=== PATIENT | female | born 1935 | race Caucasian/White ===

== ENCOUNTER → 2016-12-09 | Outpatient (REF) | payer OTHER ==
[2016-12-15 14:17] LABS: ACETAMINOPHEN Negative ug/mL (10-30); AMITRIPTYLINE None Detected (Not Estab.); BUTALBITAL None Detected ug/mL (1-10); DESIPRAMINE None Detected (Not Estab.); DIAZEPAM None Detected ug/mL (0.1-0.9); DOXEPIN None Detected (Not Estab.); ETHANOL Negative % (0.000-0.010); NORCHLORDIAZEPOXIDE None Detected ug/mL (0.1-0.6); NORDIAZEPAM None Detected ug/mL (0.1-1.4); NORDOXEPIN None Detected (Not Estab.); NORTRIPTYLINE None Detected ng/mL (50-150); PENTOBARBITAL None Detected ug/mL (1-5); PHENOBARBITAL None Detected ug/mL (15-40); PHENYTOIN None Detected ug/mL (10.0-20.0)
== END ==
LOC: M LABDRAW1 15:51
PROVIDERS: ATTEND Physical Medicine & Rehabilitation
DX: M48.07 Spinal stenosis, lumbosacral region (principal)
CPT/HCPCS: 84600; G0480

== ENCOUNTER → 2016-12-28 | Outpatient (CLI) | payer MEDICARE, BC, OTHER ==
[2016-12-28 10:33] LABS: MEAN CORPUSCULAR HGB CONC 32.5 g/dl (32.0-36.5); MEAN CORPUSCULAR VOLUME 98.2 fl (80.0-96.0); RED CELL DISTRIBUTION WIDTH 12.7 % (11.5-14.5); WHITE BLOOD COUNT 8.4 K/mm3 (4.0-10.0)
[2016-12-28 11:07] LABS: VITAMIN B12 LEVEL > 2000 PG/ML (247-911)
[2016-12-28 11:13] LABS: ALBUMIN/GLOBULIN RATIO 0.94 (1.00-1.93); ALKALINE PHOSPHATASE 105 U/L (45-117); ALT/SGPT 26 U/L (12-78); ANION GAP 7 MEQ/L (8-16); AST/SGOT 24 U/L (15-37); BILIRUBIN,TOTAL 0.4 MG/DL (0.2-1.0); BLOOD UREA NITROGEN 26 MG/DL (7-18); CALCIUM LEVEL 8.1 MG/DL (8.8-10.2); CARBON DIOXIDE LEVEL 26 MEQ/L (21-32); CHLORIDE LEVEL 110 MEQ/L (98-107); CHOLESTEROL LEVEL 125 MG/DL (<200); CREATININE FOR GFR 1.24 MG/DL (0.55-1.02); GLOMERULAR FILTRATION RATE 44.1 (>32); GLUCOSE, FASTING 81 MG/DL (83-110); PERCENT SATURATION 5.7 % (13.2-45.0); POTASSIUM SERUM 4.4 MEQ/L (3.5-5.1); SODIUM LEVEL 143 MEQ/L (136-145); TOTAL IRON BINDING CAPACITY 350 UG/DL (250-450); TOTAL PROTEIN 6.2 GM/DL (6.4-8.2); TRIGLYCERIDES LEVEL 121 MG/DL (<150)
--- NOTE | 2016-12-28 11:15 | REP ---
TWO VIEW CHEST: Two views of the chest are performed and compared with a prior study of 12/24/2013 . Small bilateral pleural effusions are present with mild bibasilar atelectasis/infiltrate. There is very mild cardiomegaly. There is calcification and tortuosity of the thoracic aorta. IMPRESSION: Small pleural effusions bilaterally with mild bibasilar atelectasis/infiltrate. Mild cardiomegaly. Signed by Duong Aviles MD 12/28/2016 01:47 P
--- NOTE | 2016-12-28 22:20 | ECGEPIP ---
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
== END ==
LOC: M LAB 10:00
PROVIDERS: ATTEND Family Medicine
DX: I10 Essential (primary) hypertension (principal); D64.9 Anemia, unspecified; R53.83 Other fatigue

== ENCOUNTER 2017-03-05 14:11 | Inpatient (IN) | payer MEDICARE, BC, OTHER ==
[~2017-03-05] VITALS: Ht 152.4 cm; Wt 42.1 kg
[2017-03-05] MEDS ORDERED: TRAM50TA2 PO (14:35)
[2017-03-05] MEDS ORDERED: ALEV220C2 PO (14:35)
[2017-03-05] MEDS ORDERED: TYLE650T35 PO (14:35)
[2017-03-05] MEDS ORDERED: ROPI1TAB PO (14:35)
[2017-03-05] MEDS ORDERED: CIPR500T3 PO (14:35)
[2017-03-05] MEDS ORDERED: ALPH0.156 OU (14:35)
[2017-03-05] MEDS ORDERED: latanaprost OU (14:35)
[2017-03-05] MEDS ORDERED: COLA100C5 PO (14:35)
[2017-03-05] MEDS: METOPROLOL 5 MG/5 ML VIAL IV SCH ×35 (15:35→18:20)
[2017-03-05 15:36] LABS: BASO # 0.1 10^3/uL (0.0-0.2); BASO % 1.2 % (0.0-1.0); EOS # 0.1 10^3/uL (0.0-0.50); EOS % 1.4 % (0.0-3.0); IMMATURE GRANULOCYTE % 0.2 % (0-0); LYMPH # 1.2 10^3/uL (1.5-4.5); LYMPH % 13.5 % (24.0-44.0); MEAN CORPUSCULAR HEMOGLOBIN 30.3 pg (27.0-33.0); MEAN CORPUSCULAR HGB CONC 31.8 g/dl (32.0-36.5); MEAN CORPUSCULAR VOLUME 95.4 fl (80.0-96.0); MONO # 1.1 10^3/uL (0.0-0.8); MONO % 12.2 % (0.0-5.0); NEUTROPHILS # 6.6 10^3/uL (1.8-7.7); NEUTROPHILS % 71.5 % (36.0-66.0); PLATELET COUNT, AUTOMATED 418 10^3/uL (150-450); WHITE BLOOD COUNT 9.2 10^3/uL (4.0-10.0)
[2017-03-05 15:49] LABS: INR 1.25
[2017-03-05 15:50] LABS: ALBUMIN 3.1 GM/DL (3.2-5.2); ALBUMIN/GLOBULIN RATIO 0.76 (1.00-1.93); ALKALINE PHOSPHATASE 135 U/L (45-117); ALT/SGPT 44 U/L (12-78); ANION GAP 10 MEQ/L (8-16); AST/SGOT 38 U/L (7-37); BILIRUBIN,DIRECT 0.1 MG/DL (0.0-0.2); BILIRUBIN,TOTAL 0.5 MG/DL (0.2-1.0); BLOOD UREA NITROGEN 24 MG/DL (7-18); CALCIUM LEVEL 8.7 MG/DL (8.8-10.2); CARBON DIOXIDE LEVEL 22 MEQ/L (21-32); CHLORIDE LEVEL 106 MEQ/L (98-107); CREATININE FOR GFR 1.18 MG/DL (0.55-1.02); GLOMERULAR FILTRATION RATE 46.7 (>32); GLUCOSE, FASTING 92 MG/DL (83-110); POTASSIUM SERUM 4.1 MEQ/L (3.5-5.1); SODIUM LEVEL 138 MEQ/L (136-145); TOTAL PROTEIN 7.2 GM/DL (6.4-8.2)
[2017-03-05] MEDS ORDERED: NEBIVOLOL 5 MG TAB (BYSTOLIC) PO STA (16:02)
[2017-03-05] MEDS ORDERED: FUROSEMIDE 40 MG/4 ML VIAL (J1940) IV ONE (16:15)
--- NOTE | 2017-03-05 16:44 | REP ---
Clinical: The left lower extremity pain and swelling . Technique: Aviles scale and color Doppler evaluation using linear high frequency transducer. Findings: Ultrasound examination of the left lower extremity deep venous structures from the common femoral vein to the popliteal vein demonstrates normal compressibility flow and wave patterns in response to respiration and augmentation. There is no evidence for deep venous thrombosis. Impression: No evidence for deep venous thrombosis. Signed by Fan Hightower MD 03/05/2017 04:35 P
--- NOTE | 2017-03-05 16:49 | REP ---
Clinical: Chest pain. Comparison: 03/05/2017. Findings: Lower lobe consolidations and moderate pleural effusions are similar to prior examination. Differential diagnosis includes CHF/pulmonary edema and multifocal pneumonia. No pneumothorax. Cardiomegaly cannot be excluded. Skeletal structures intact. Impression: Bilateral consolidations and pleural effusions similar to prior examination. Differential diagnosis includes CHF and multifocal pneumonia. Signed by Fan Hightower MD 03/05/2017 04:41 P
[2017-03-05] MEDS ORDERED: LATA5OPD OU (17:04)
[2017-03-05] MEDS ORDERED: SLOW142T PO (17:04)
[2017-03-05] MEDS ORDERED: LEVO112T2 PO (17:04)
[2017-03-05] MEDS ORDERED: ASPI325T PO (17:04)
[2017-03-05] MEDS ORDERED: MYRB50TA PO (17:04)
[2017-03-05] MEDS ORDERED: ASPI1TAB PO (17:04)
[2017-03-05] MEDS ORDERED: ENOXAPARIN 100MG/1ML SYRINGE (J1650) SC SCH (17:45)
[2017-03-05] MEDS ORDERED: ACETAMINOPHEN 650MG ER TAB (TYLENOL ARTHRITIS) PO PRN (17:45)
[2017-03-05] MEDS ORDERED: ASPIRIN 81 MG ENTERIC TAB PO PRN (17:45)
[2017-03-05] MEDS ORDERED: DIGOXIN INJ 0.5 MG/2 ML AMP (J1160) IV STA (18:30)
[2017-03-05 20:00] VITALS: BP 127/85
[2017-03-05] MEDS: DOCUSATE SODIUM 100 MG CAP PO SCH (20:23)
[2017-03-05] MEDS: METOPROLOL TART 25 MG TABLET PO SCH (20:23)
[2017-03-05] MEDS: LEVOTHYROXINE 112MCG TABLET (0.112MG) PO SCH (20:24)
[2017-03-05] MEDS: APIXABAN 2.5 MG TAB (ELIQUIS) PO SCH (20:24)
--- NOTE | 2017-03-05 20:44 | HPEPDOC ---
General Date of Admission Mar 05, 2017 at 17:58 Primary Care Physician: Farhan Hdz Attending Physician: LAYNE NOLAND MD Chief Complaint The patient is a 81-year-old female admitted with a reason for visit of Atrial Fibrillation,Chf. Source: Patient, Family, RN notes reviewed, Old records Exam Limitations: No limitations Associated Symptoms: Cough, Shortness of breath, Weakness History of Present Illness Ms. Rajput is an 81-year-old female who presents to [facility]'s Emergency Department with increasing shortness of breath and newly diagnosed atrial fibrillation. She is accompanied by her [id number]. Past medical history significant for: hypertension, newly diagnosed atrial fibrillation, hyperthyroidism, diastolic congestive heart failure, pernicious anemia, restless leg syndrome, chronic pain, glaucoma, constipation, history of tubular adenoma, chronic gastritis, history of H. pylori, rectocele/cystocele, left hammertoe, lumbar scoliosis. Patient stated that she was in good health until three weeks ago when she first developed a sinus infection that she characterized with a runny nose, sneezing, and yellow nasal secretions and phlegm. She treated this symptomatically with Mucinex, Karen [place], and "salt washings" of her nasal passages that she said helped some. However, she did not improve. The shortness of breath she was experiencing worsened with exertion and she developed a dry cough. This began last Tuesday. She also noticed swelling of her left ankles and foot the Tuesday before and eventually presented to her primary care provider on Tuesday. An x-ray and ultrasound was obtained. She was also started on Ciprofloxacin ( which she has been taking for three days) and eventually Amoxicillin (which she has been taking for two days). The patient did not get the results of that imaging, but assumed that because she had not heard anything that the imaging results were negative. She presented to the Urgent Care where the patient was told that she was in atrial fibrillation. This is a new diagnosis for her. She denies a history of chest pain or palpitations. Admits to weakness due to the shortness of breath. Her shortness of breath was also no better, so patient was advised to present to [facility] ED. She elected to drive herself. Emergency Department evaluation included vital signs, labs, and an EKG which showed tachycardia, BNP 57838, and atrial fibrillation with rapid ventricular response. Patient denies fever, night sweats, chills, headache, chest pain, palpitations, dizziness, lightheadedness, weight changes, acute vision changes, acute hearing changes, nausea, vomiting, abdominal pain, dysuria, urinary frequency/urgency, hematuria, constipation, diarrhea, melena, hematochezia, epistaxis, hematemesis , hemoptysis, neck pain, joint pain, rashes, lesions, easy bruising. Patient admits to chronic tingling in her lateral aspect of her right lower leg , dry mouth, right shoulder pain, chronic blurry vision. Hospitalist service was consulted and patient was admitted for further medical management. Home Medications Scheduled (Aleve) 220 Mg Cap, 2 TAB PO DAILY, (Reported) (Slow Fe) 142 Mg Tab, 142 MG PO QPM, (Reported) Brimonidine Tartrate 0.15% (Alphagan P) 0.15 % Jacquelin, 1 DROP OU BID, (Reported) Ciprofloxacin HCl (Ciprofloxacin HCl) 500 Mg Tab, 1 TAB PO BID, (Reported) filled 03/01 for 7 days Docusate Sodium (Colace) 100 Mg Cap, 300 MG PO BID, (Reported) Latanoprost (Latanoprost) 50 Drop/2.5 Ml Soln, 1 DROP OU QHS, (Reported) Levothyroxine Sodium (Synthroid) 112 Mcg Tab, 112 MCG PO QHS, (Reported) Mirabegron Base (Myrbetriq) 50 Mg Tab, 50 MG PO QPM, (Reported) Ropinirole Hydrochloride (Ropinirole HCl) 1 Mg Tab, 2 MG PO QHS, (Reported) Scheduled PRN Acetaminophen (Tylenol 8 Hour Arthritis) 650 Mg Tab, 650 MG PO Q8H PRN for pain, (Reported) Aspirin (Aspirin 81) 81 Mg Tab, 81 MG PO DAILY PRN for PAIN, (Reported) Aspirin (Aspirin) 325 Mg Tab, 325 MG PO DAILY PRN for PAIN, (Reported) Tramadol HCl (Tramadol HCl) 50 Mg Tab, 1 TAB PO Q6HP PRN for pain, (Reported) Allergies Coded Allergies: Bee Venom (Verified Allergy, Unknown, 01/02/14) Celecoxib (Verified Allergy, Unknown, 01/02/14) Codeine (Verified Allergy, Unknown, 01/02/14) NSAIDs (Verified Allergy, Unknown, 01/02/14) Propoxyphene (Verified Allergy, Unknown, 01/02/14) Sulfa Antibiotics (Verified Allergy, Unknown, 01/02/14) Past Medical History Medical History 1. Hypertension 2. Newly diagnosed atrial fibrillation 3. Hyperthyroidism 4. Diastolic congestive heart failure 5. Pernicious anemia 6. Restless leg syndrome 7. Chronic pain, glaucoma 8. Constipation 9. History of tubular adenoma 10 Chronic gastritis 11. History of H. pylori 12. Rectocele/cystocele 13. Left hammertoe 14. Lumbar scoliosis Surgical History 1. Colonoscopy x2 2. EGD x2 3. Left bunionectomy and hammertoe deformity repair of second toe 4. Right knee arthroplasty 5. Bilateral cataract 6. Right drainage placement in eye for glaucoma Family History Father: , heart Mother: , brain cancer Sister: , 87, pneumonia Sister: , 66, lung cancer Brother: , 82, lung cancer Brother: , 86, lung cancer Sister: , 66, cancer Brother: , 40s, pneumonia Social History Lives with son. Has two adult sons and one daughter. Has seven grandchildren and three great-grandchildren. . from melanoma and colon cancer at the age of 81 three years ago. for 61 years. 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 Denies tobacco, EtOH, or illicit drug use. Denies travel. Review of Symptoms Constitutional: Reports: Weakness, Denies: Chills, Fever, Malaise, Night Sweats, Fatigue, Weight Loss Eyes: Reports: Vision change (Chronic blurry vision), Denies: Pain, Conjunctivae inflammation, Eyelid inflammation, Redness ENT: Denies: Head Aches, Ear Pain, Dysphagia, Sinus Congestion, Post Nasal Drip , Sore Throat, Epistaxis Skin: Denies: Rash, Lesions, Jaundice, Bruising, Itching, Dry Pulmonary: Reports: Dyspnea (With exertion), Cough (Dry), Denies: Pleuritic Chest Pain Cardiovascular: Reports: Edema (Left lower extremity), Denies: Chest Pain, Palpitations, Orthopnea, Paroxysmal Noc. Dyspnea, Lt Headedness Gastrointestinal: Denies: Nausea, Vomiting, Abdominal Pain, Diarrhea, Constipation, Melena, Hematochezia Genitourinary: Denies: Dysuria, Frequency, Incontinence, Hematuria, Retention Hematologic: Denies: Bruising, Bleeding Excessively, Petecchia, Purpura, Enlarged Lymph Nodes Endocrine: Denies: Polydipsia, Polyphagia, Polyuria Musculoskeletal: Reports: Back Pain, Shoulder Pain (Right), Denies: Neck Pain, Joint Pain Neurological: Reports: Weakness, Denies: Numbness Physical Examination General Exam: Positive: Alert, Cooperative, No Acute Distress Eye Exam: Positive: PERRLA, Conjunctiva & lids normal, EOMI, Negative: Sclera icteric, Ptosis ENT Exam: Positive: Atraumatic, Mucous membr. moist/pink, Pharynx Normal, Tongue Midline, Nares Patent, Negative: Pharyngeal Edema Neck Exam: Positive: Supple, JVD (~ 5cm), +2 carotid pulse wo bruit, Negative: thyromegaly, Lymphadenopathy Chest Exam: Positive: Clear to auscultation, Normal air movement Heart Exam: Positive: Irregular Rhythm, Negative: Gallops, Murmurs, Rubs Telemetry: Positive: Atrial fibrillation Abdomen Exam: Positive: BS Hypoactive, Soft, Negative: Tenderness, Hepatospenomegaly, Mass, Hernia Extremity Exam: Positive: Edema (+1-2 pitting edema up to the level of the tibial tuberosity bilaterally), Swelling, Negative: Clubbing, Cyanosis, Normal pulses, Tenderness Skin Exam: Negative: Rash, Lesion Neuro Exam: Positive: Normal Speech, Cranial Nerves 3-12 NL Other physical findings Portable chest x-ray IMPRESSION: Bilateral consolidations and pleural effusions similar to prior examination. Differential diagnosis includes CHF and multifocal pneumonia. Left lower extremity duplex ultrasound IMPRESSION: No evidence for deep venous thrombosis. Vital Signs Vital Signs Date Time Temp Pulse Resp B/P (MAP) Pulse Ox O2 Delivery O2 Flow Rate FiO2 03/05/17 18:26 120 98 03/05/17 17:13 136/96 (109) 03/05/17 14:55 Room Air 03/05/17 14:54 20 03/05/17 14:12 96.9 Height (in): 60 Weight (kg): 46.9 BMI (kg): 20.2 Laboratory Data Labs 24H Laboratory Tests 2 03/05/17 14:44: Immature Granulocyte % (Auto) 0.2H, White Blood Count 9.2, Red Blood Count 4.12 , Hemoglobin 12.5, Hematocrit 39.3, Mean Corpuscular Volume 95.4, Mean Corpuscular Hemoglobin 30.3, Mean Corpuscular Hemoglobin Concent 31.8L, Red Cell Distribution Width 14.0, Platelet Count 418, Neutrophils (%) (Auto) 71.5H, Lymphocytes (%) (Auto) 13.5L, Monocytes (%) (Auto) 12.2H, Eosinophils (%) (Auto ) 1.4, Basophils (%) (Auto) 1.2H, Neutrophils # (Auto) 6.6, Lymphocytes # (Auto ) 1.2L, Monocytes # (Auto) 1.1H, Eosinophils # (Auto) 0.1, Basophils # (Auto) 0.1, Immature Granulocyte # (Auto) 0.0, Nucleated Red Blood Cells % (auto) 0.0, Prothrombin Time 15.9H, Prothromb Time International Ratio 1.25, Anion Gap 10, Glomerular Filtration Rate 46.7, Calcium Level 8.7L, Aspartate Amino Transf (AST /SGOT) 38H, Alanine Aminotransferase (ALT/SGPT) 44, Alkaline Phosphatase 135H, Total Bilirubin 0.5, Direct Bilirubin 0.1, Total Creatine Kinase 41, Creatine Kinase MB 2.5, Creatine Kinase MB Relative Index 6.09H, Troponin I < 0.02, NT- Pro-B-Type Natriuretic Peptide 14344N, Total Protein 7.2, Albumin 3.1L, Albumin/ Globulin Ratio 0.76L, Lipase 152, Thyroid Stimulating Hormone (TSH) 3.410 CBC/BMP Laboratory Tests 03/05/17 14:44 Red Blood Count 4.12, Mean Corpuscular Volume 95.4, Mean Corpuscular Hemoglobin 30.3, Mean Corpuscular Hemoglobin Concent 31.8 L, Red Cell Distribution Width 14.0, Neutrophils (%) (Auto) 71.5 H, Lymphocytes (%) (Auto) 13.5 L, Monocytes (% ) (Auto) 12.2 H, Eosinophils (%) (Auto) 1.4, Basophils (%) (Auto) 1.2 H, Neutrophils # (Auto) 6.6, Lymphocytes # (Auto) 1.2 L, Monocytes # (Auto) 1.1 H, Eosinophils # (Auto) 0.1, Basophils # (Auto) 0.1 Plan / VTE VTE Prophylaxis Ordered?: Yes (Eliquis 2.5mg PO BID) Plan Plan Newly diagnosed atrial fibrillation - Admit to PCU - Consult cardiology - Metoprolol 25mg PO BID - Digoxin 0.25mg IV ONCE - Eliquis 2.5mg PO BID - EKG showing atrial fibrillation with RVR - CHADS2-VASc score: 5 - Cycle cardiac markers Exacerbation of congestive heart failure - BNP 36930 - Lasix 40mg IV BID - Echocardiogram, STAT (prior echocardiogram in 2006 revealed diastolic CHF) - No need for oxygen therapy orders at this time as patient is saturating appropriately - Afebrile and no leukocytosis, so no antibiotics required at this time Hyperthyroidism - Continue with current home medication Glaucoma - Continue with eye drops Restless leg syndrome - Continue with Requip - Constipation - Continue with current home medication Chronic pain - Continue with current home medication Disposition Admit: PCU Anticipated hospitalization: 2 nights Attending: Dr. Headley CODE STATUS: DNR/DNI Diet: Continue Current (No added salt) Activity: Continue Current Therapy: PT Diagnostics: Check Labs, Repeat Labs in AM, TTE GME ATTESTATION GME ATTESTATION My faculty preceptor for this patient encounter was physically present during the encounter and was fully available. All aspects of the patient interview, examination, medical decision making process, and medical care plan development were reviewed and approved by the faculty preceptor. The faculty preceptor is aware and concurs with the plan as stated in the body of this note and will attest to such by his/her cosignature. ATTENDING NOTE I have both independently examined this patient as well as reviewed the H&P. I have discussed in detail with the resident the findings and plan of treatment as documented in the residents note. I will continue to follow the patient and offer further guidance to the patients care as necessary during this hospital stay. JEYSON Woodson MD, DO Mar 05, 2017 19:10 LAYNE NOLAND MD Mar 07, 2017 11:41
[2017-03-05] MEDS ORDERED: ENOXAPARIN 60 MG/0.6 ML SYR (J1650) SC SCH (21:00)
[2017-03-05] MEDS ORDERED: DIGOXIN INJ 0.5 MG/2 ML AMP (J1160) IV ONE (21:30)
[2017-03-05] MEDS: BRIMONIDINE 0.15% OPHTH SOLN 5 ML OU SCH (21:42)
[2017-03-05 21:45] VITALS: BP 132/82
[2017-03-05] MEDS: LATANOPROST 0.005% OPHTH SOLN 2.5 ML OU SCH (21:47)
[2017-03-05] MEDS: rOPINIRole 1MG TAB PO SCH (21:47)
[2017-03-05 23:59] VITALS: BP 116/71
[2017-03-06 04:00] VITALS: BP 131/72
[2017-03-06] MEDS ORDERED: ONDANSETRON 4MG/2ML VIAL (J2405) IV PRN (04:00)
[2017-03-06] MEDS: traMADol 50 MG TAB PO PRN (04:17)
[2017-03-06 05:39] LABS: BASO # 0.1 10^3/uL (0.0-0.2); BASO % 1.2 % (0.0-1.0); EOS # 0.3 10^3/uL (0.0-0.50); EOS % 3.9 % (0.0-3.0); IMMATURE GRANULOCYTE % 0.4 % (0-0); LYMPH # 1.4 10^3/uL (1.5-4.5); MEAN CORPUSCULAR HEMOGLOBIN 30.3 pg (27.0-33.0); MEAN CORPUSCULAR HGB CONC 32.2 g/dl (32.0-36.5); MEAN CORPUSCULAR VOLUME 94.1 fl (80.0-96.0); MONO # 1.1 10^3/uL (0.0-0.8); MONO % 12.8 % (0.0-5.0); NEUTROPHILS # 5.4 10^3/uL (1.8-7.7); NEUTROPHILS % 64.7 % (36.0-66.0); PLATELET COUNT, AUTOMATED 339 10^3/uL (150-450); RED CELL DISTRIBUTION WIDTH 13.8 % (11.5-14.5); WHITE BLOOD COUNT 8.4 10^3/uL (4.0-10.0)
[2017-03-06 05:56] LABS: CALCIUM LEVEL 8.5 MG/DL (8.8-10.2); CREATININE FOR GFR 1.27 MG/DL (0.55-1.02); GLOMERULAR FILTRATION RATE 42.9 (>32); POTASSIUM SERUM 3.8 MEQ/L (3.5-5.1)
[2017-03-06 08:00] VITALS: BP 135/68
[2017-03-06] MEDS: DOCUSATE SODIUM 100 MG CAP PO SCH ×2 (08:32→21:54)
[2017-03-06] MEDS: FUROSEMIDE 40 MG/4 ML VIAL (J1940) IV SCH ×2 (08:32→16:35)
[2017-03-06] MEDS: METOPROLOL TART 25 MG TABLET PO SCH ×2 (08:32→21:55)
[2017-03-06] MEDS: APIXABAN 2.5 MG TAB (ELIQUIS) PO SCH ×2 (08:32→21:55)
[2017-03-06] MEDS: BRIMONIDINE 0.15% OPHTH SOLN 5 ML OU SCH ×2 (08:33→21:56)
[2017-03-06] MEDS: ONDANSETRON 4MG/2ML VIAL (J2405) IV PRN ×2 (10:02→16:00)
[2017-03-06 12:00] VITALS: BP 129/78
--- NOTE | 2017-03-06 12:23 | IPNPDOC ---
Subjective Date Seen The patient was seen on 03/06/17. Subjective Chief Complaint/HPI The patient is a 81-year-old female admitted with a reason for visit of Atrial Fibrillation,Chf. Events since last encounter complains of severe nausea this morning and back pain. Says SOB has improved left leg swelling has also improved. No fever or chills, no chest pain or cough , no abdominal pain or diarrhea. Patient says did have some sinus congestion about 2 weeks ago for which she took over the counter meds and nasal drops. This got better however she started having sob which progressively worsened over the past and made her come to the ED Objective Physical Examination General Exam: Positive: Alert, Cooperative, No Acute Distress Eye Exam: Positive: PERRLA, Conjunctiva & lids normal, EOMI, Negative: Sclera icteric, Ptosis ENT Exam: Positive: Atraumatic, Mucous membr. moist/pink, Pharynx Normal, Tongue Midline, Nares Patent, Negative: Pharyngeal Edema Neck Exam: Positive: Supple, JVD (~ 5cm), +2 carotid pulse wo bruit, Negative: thyromegaly, Lymphadenopathy Chest Exam: Positive: Clear to auscultation, Normal air movement Heart Exam: Positive: Tachycardic, Irregular Rhythm, Negative: Gallops, Murmurs, Rubs Telemetry: Positive: Atrial fibrillation Abdomen Exam: Positive: BS Hypoactive, Soft, Negative: Tenderness, Hepatospenomegaly, Mass, Hernia Extremity Exam: Positive: Edema (+1-2 pitting edema up to the level of the tibial tuberosity bilaterally), Swelling, Negative: Clubbing, Cyanosis, Normal pulses, Tenderness Skin Exam: Negative: Rash, Lesion Neuro Exam: Positive: Normal Speech, Cranial Nerves 3-12 NL Assessment /Plan Problems (1) Atrial fibrillation Status: Acute Problem Text: rate still not controlled ranging from 110 to 130. She got 2 doses of digoxin yesterday metoprolol and nebivolol currently on metoprolol 25 bid. started on eliquis. echo pending cardiology to see. (2) CHF (congestive heart failure) Status: Acute Response to Treatment: Improving Problem Text: continue with lasix (3) CKD (chronic kidney disease), stage III Status: Chronic (4) Hypothyroid Status: Chronic (5) Anemia Status: Chronic Problem Text: has iron deficiency anemia. (6) Restless leg syndrome Status: Chronic (7) Glaucoma Status: Chronic (8) Overactive bladder Status: Chronic Plan/VTE VTE Prophylaxis Ordered?: Yes (Eliquis 2.5mg PO BID) Plan Diet: Continue Current (No added salt) Activity: Continue Current Therapy: PT Diagnostics: Check Labs, Repeat Labs in AM, TTE VS, I&O, 24H, Fishbone Vital Signs/I&O Vital Signs Date Time Temp Pulse Resp B/P (MAP) Pulse Ox O2 Delivery O2 Flow Rate FiO2 03/06/17 08:32 85 135/68 03/06/17 08:00 97.6 18 92 Room Air I&O- Last 24 Hours up to 6 AM 03/07/17 06:00 Intake Total 0 ml Output Total 100 ml Balance -100 ml Laboratory Data 24H LABS Laboratory Tests 2 03/05/17 14:44: Immature Granulocyte % (Auto) 0.2H, White Blood Count 9.2, Red Blood Count 4.12 , Hemoglobin 12.5, Hematocrit 39.3, Mean Corpuscular Volume 95.4, Mean Corpuscular Hemoglobin 30.3, Mean Corpuscular Hemoglobin Concent 31.8L, Red Cell Distribution Width 14.0, Platelet Count 418, Neutrophils (%) (Auto) 71.5H, Lymphocytes (%) (Auto) 13.5L, Monocytes (%) (Auto) 12.2H, Eosinophils (%) (Auto ) 1.4, Basophils (%) (Auto) 1.2H, Neutrophils # (Auto) 6.6, Lymphocytes # (Auto ) 1.2L, Monocytes # (Auto) 1.1H, Eosinophils # (Auto) 0.1, Basophils # (Auto) 0.1, Immature Granulocyte # (Auto) 0.0, Nucleated Red Blood Cells % (auto) 0.0, Prothrombin Time 15.9H, Prothromb Time International Ratio 1.25, Anion Gap 10, Glomerular Filtration Rate 46.7, Calcium Level 8.7L, Aspartate Amino Transf (AST /SGOT) 38H, Alanine Aminotransferase (ALT/SGPT) 44, Alkaline Phosphatase 135H, Total Bilirubin 0.5, Direct Bilirubin 0.1, Total Creatine Kinase 41, Creatine Kinase MB 2.5, Creatine Kinase MB Relative Index 6.09H, Troponin I < 0.02, NT- Pro-B-Type Natriuretic Peptide 24758O, Total Protein 7.2, Albumin 3.1L, Albumin/ Globulin Ratio 0.76L, Lipase 152, Thyroid Stimulating Hormone (TSH) 3.410 03/05/17 20:43: Total Creatine Kinase 45, Creatine Kinase MB 2.1, Creatine Kinase MB Relative Index 4.66H, Troponin I < 0.02 03/06/17 05:13: Immature Granulocyte % (Auto) 0.4H, White Blood Count 8.4, Red Blood Count 3.70L , Hemoglobin 11.2L, Hematocrit 34.8L, Mean Corpuscular Volume 94.1, Mean Corpuscular Hemoglobin 30.3, Mean Corpuscular Hemoglobin Concent 32.2, Red Cell Distribution Width 13.8, Platelet Count 339, Neutrophils (%) (Auto) 64.7, Lymphocytes (%) (Auto) 17.0L, Monocytes (%) (Auto) 12.8H, Eosinophils (%) (Auto ) 3.9H, Basophils (%) (Auto) 1.2H, Neutrophils # (Auto) 5.4, Lymphocytes # (Auto ) 1.4L, Monocytes # (Auto) 1.1H, Eosinophils # (Auto) 0.3, Basophils # (Auto) 0.1, Immature Granulocyte # (Auto) 0.0, Nucleated Red Blood Cells % (auto) 0.0, Anion Gap 9, Glomerular Filtration Rate 42.9, Calcium Level 8.5L, Blood Urea Nitrogen 27H, Creatinine 1.27H, Sodium Level 141, Potassium Level 3.8, Chloride Level 108H, Carbon Dioxide Level 24, Magnesium Level 2.0 CBC/BMP Laboratory Tests 03/05/17 14:44 Red Blood Count 4.12, Mean Corpuscular Volume 95.4, Mean Corpuscular Hemoglobin 30.3, Mean Corpuscular Hemoglobin Concent 31.8 L, Red Cell Distribution Width 14.0, Neutrophils (%) (Auto) 71.5 H, Lymphocytes (%) (Auto) 13.5 L, Monocytes (% ) (Auto) 12.2 H, Eosinophils (%) (Auto) 1.4, Basophils (%) (Auto) 1.2 H, Neutrophils # (Auto) 6.6, Lymphocytes # (Auto) 1.2 L, Monocytes # (Auto) 1.1 H, Eosinophils # (Auto) 0.1, Basophils # (Auto) 0.1 03/06/17 05:13 Red Blood Count 3.70 L, Mean Corpuscular Volume 94.1, Mean Corpuscular Hemoglobin 30.3, Mean Corpuscular Hemoglobin Concent 32.2, Red Cell Distribution Width 13.8, Neutrophils (%) (Auto) 64.7, Lymphocytes (%) (Auto) 17.0 L, Monocytes (%) (Auto) 12.8 H, Eosinophils (%) (Auto) 3.9 H, Basophils (% ) (Auto) 1.2 H, Neutrophils # (Auto) 5.4, Lymphocytes # (Auto) 1.4 L, Monocytes # (Auto) 1.1 H, Eosinophils # (Auto) 0.3, Basophils # (Auto) 0.1, Calcium Level 8.5 L ESTHER MOCTEZUMA MD Mar 06, 2017 12:23
--- NOTE | 2017-03-06 15:00 | ECHO ---
DATE OF STUDY: 03/05/2017 REFERRING PHYSICIAN: Sharita Forrester DO HEIGHT: 60 inches. WEIGHT: 103 pounds. 2D MEASUREMENTS: Aortic root 3.0 cm. Proximal ascending aorta 3.1 cm. Left atrium 3.9 cm. Left atrial volume index 61. Ventricular septum 1.08 cm. Posterior wall 0.98 cm. Left ventricle diastole 3.7 cm. Left ventricle systole 2.6 cm. Inferior vena cava 2.1 cm with marked reduction of respiratory variation. DOPPLER MEASUREMENTS: Mild aortic regurgitation. No aortic stenosis. Aortic valve velocity 179 cm/s. LVOT velocity 80.5 cm/s. LVOT VTI 14.5 cm. Moderate mitral regurgitation. Mitral E velocity (continuous wave) 189 cm/s. Mitral pressure halftime 72 ms. Mitral E velocity (pulse wave) 451 cm/s. Moderate tricuspid regurgitation. Estimated right ventricle systolic pressure at least 75 mmHg assuming a right atrial pressure of at least 20 mmHg based on dilated inferior vena cava with marked reduction of respiratory variations. Mild pulmonic regurgitation. MITRAL ANNULAR TISSUE DOPPLER: E prime lateral 8.3 cm/s. E prime septal 8.9 cm/s. DESCRIPTION: Rhythm was atrial fibrillation with controlled ventricular response. No pericardial effusion. Image quality was fair. This was a 2D, M-mode, color flow Doppler and pulse wave Doppler examination and included mitral annular tissue Doppler. CONCLUSIONS: 1. Normal left ventricle internal dimensions and wall thickness. Normal regional LV wall motion and wall thickening. Normal LV systolic function. Left ventricular function 60% by visual estimate. 2. Severe left atrial dilatation (left atrial volume index 61 mmHg). 3. Moderate mitral annular calcification. Moderate mitral regurgitation. No mitral stenosis. 4. Moderate tricuspid regurgitation. Suggestive of severe elevation of estimated right ventricle systolic pressure (at least 75 mmHg). Normal right ventricle size and systolic function. 5. Inferior vena cava plethora. Decreased respiratory variation suggestive of elevated central venous pressure of at least 20 mmHg. Type 2 spontaneous echocontrast in the inferior vena cava. 6. Moderate mitral annular calcification. No mitral stenosis. Mild mitral regurgitation. 7. Bilateral pleural effusions.
--- NOTE | 2017-03-06 15:11 | CR ---
DATE OF CONSULTATION: 03/06/2017 at 11:28 a.m. REFERRING PHYSICIAN: Dr. Sharita Forrester REASON FOR CONSULTATION: Newly discovered atrial fibrillation with rapid ventricular response and acute on chronic diastolic heart failure. HISTORY OF PRESENT ILLNESS: Mónica Rajput is a pleasant, 81-year-old woman with no previously known atrial fibrillation, who has systemic hypertension and thought to have chronic diastolic heart failure. A previous echocardiogram Doppler, 02/14/2007, reported patient to be in sinus rhythm with normal left ventricular (LV) size and systolic function. LV wall thickness near the upper limits of normal. Normal right ventricular (RV) size and systolic function. Normal atrial size. Suggestive of mild impairment of diastolic relaxation. Mild aortic valve sclerosis. Mild aortic regurgitation. No mitral valve prolapse. Normal mitral valve. Mild mitral regurgitation within normal limits. Moderate tricuspid regurgitation. Suggestive of mildly elevated RV systolic pressure. Patient reports having a sinus cold about 3 weeks. Beginning about 2 weeks ago, she developed edema in her left leg, but not her right leg. 5 days prior to admission, she developed progressive exertional dyspnea with activity to the point of dyspnea with minimal activity. No dyspnea at rest. No orthopnea or paroxysmal nocturnal dyspnea (PND). She is completely unaware of any palpitations. No presyncope or syncope. No embolic events. No intermittent claudication. No chest, neck, jaw, pain, pressure, tightness, squeezing, or heaviness with or without exertion. She has had for the past 3 weeks, a nonproductive cough. OTHER PAST MEDICAL AND SURGICAL HISTORY: Systemic hypertension. Atrial fibrillation (diagnosis 03/05/2017), hypothyroidism, presumed diastolic heart failure, pernicious anemia, restless legs syndrome, chronic pain, glaucoma, constipation, history of tubular adenoma, chronic gastritis, history of Helicobacter (H) pylori, rectocele/cystocele. Left hammertoe, lumbar scoliosis. Colonoscopy times two, esophagogastroduodenoscopy (EGD) times two, left bunionectomy, and hammertoe deformity repair of 2nd toe. Right knee arthroplasty , bilateral cataract extractions, right eye glaucoma drainage placement. ADVERSE DRUG REACTIONS: NONSTEROIDAL ANTI-INFLAMMATORY DRUGS (NSAIDS), CODEINE, PROPOXYPHENE, SULFA ANTIBIOTICS, BEE STINGS. MEDICATIONS PRIOR TO ADMISSION: - Aleve 220 mg times two daily - slow iron 142 mg once daily - brimonidine 0.15% ophthalmic solution, one drop both eyes twice a day - ciprofloxacin 500 mg by mouth twice a day for 7 days - Colace 100 mg twice a day - latanoprost ophthalmic solution, one drop both eyes nightly - levothyroxine 112 mcg nightly - Myrbetriq 50 mg daily - ropinirole 1 mg tablets taken as 2 mg nightly - acetaminophen 650 mg every 8 as needed - aspirin 81 mg daily as needed - aspirin 325 mg daily as needed - tramadol 50 mg every 6 hours as needed PATIENT'S CURRENT MEDICATIONS IN HOSPITAL ARE FOLLOWS: - acetaminophen 650 mg every 8 hours as needed - Eliquis 2.5 mg twice a day - Alphagan one drop both eyes twice a day - Colace 300 mg twice a day - furosemide 40 mg IV twice a day - Xalatan ophthalmic solution one drop both eyes nightly - Synthroid 112 mcg nightly - metoprolol tartrate 25 mg by mouth twice a day - Zofran 4 mg IV as needed for nausea - ropinirole 2 mg nightly - tramadol 50 mg every 6 hours as needed FAMILY HISTORY: Father , heart disease. Mother , brain cancer. Sister at age 87, pneumonia. Another sister age 66 due to lung cancer. One brother at 82 secondary to lung cancer. Another brother at age 86 secondary to lung cancer. Another sister at age 66 secondary to cancer. Another brother in his 40s due to pneumonia. SOCIAL HISTORY: Lives with son. Has two adult sons and one daughter. A . Retired. 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 Nonsmoker. No recent travel abroad. No alcohol. REVIEW OF SYSTEMS: Intermittent weakness since 12/2016. No fever, chills, night sweats, chronic fatigue, or unexplained weight loss. Chronic blurry vision. Glaucoma. Occasional headaches. Sinus congestion. Postnasal drip. No skin problems. Nonproductive cough and exertional dyspnea as above. No chest pain. Left leg edema, as described above. Reports nausea but no vomiting. No abdominal pain. Has chronic constipation. No genitourinary () symptoms. No hematologic symptoms. No active endocrine symptoms. Reports chronic back pain and right shoulder pain. No numbness. PHYSICAL EXAMINATION: Pleasant, underweight-appearing elderly woman who is not in any respiratory or psychologic distress. Height 60 inches, weight 44.9 kg, body mass index 19.3. Temperature 97.6, pulse 85 (irregularly irregular), respiratory rate 18, blood pressure 135/68, oxygen saturation 92% on room air. No conjunctival pallor, scleral icterus, or xanthomas. Multiple missing teeth. Some dental fillings present. Oral mucosa was moist and without pallor or cyanosis. Jugular venous pulsations were to the angle of the jaw with the patient sitting up at 90 degrees (at least 20 cm). Appearance of a dominant CV-wave. Trachea midline. No palpable thyroid. No clubbing, nail bed cyanosis, or splinter hemorrhages. No skin lesions, skin pallor, or icterus. Oriented to person, place and time. Mood and affect normal. Curvature of the spine normal. Gait testing deferred. Gross motor strength and tone appear normal. No abnormal muscle atrophy, fasciculations, or tremors. Respiratory expansion effort was good. No crackles or wheezes. Mccormick beat fifth left interspace at the left midclavicular line. No left parasternal lifts, heaves, thrills, or palpable heart sounds. First heart sound variable in intensity. S2 was loud with a prominent P2 component. No S3 or S4 or pericardial friction rubs. Carotids were normal in volume and contour without bruits. No palpable abdominal aorta. No abdominal bruits. Femoral pulses normal. Pedal pulses normal. 1-2 mm pitting edema in the left leg. Trace pitting edema in the right leg. No varicose veins. Abdomen was soft, nontender, with normal bowel sounds. No hepatosplenomegaly or organomegaly. Liver span 10 cm right midclavicular line. Stool for occult blood to be ordered as patient has been started on anticoagulation. INVESTIGATIONS: I have independently visualized the patient's semiupright portable AP chest x-ray acquired 03/05/2017 at 4:37 p.m. Probable cardiomegaly despite the portable technique. Enlargement of the left and right pulmonary arteries. Increased lung markings. Small bilateral pleural effusions. No apparent alveolar edema. Some peribronchial cuffing present. Pulmonary vascular redistribution present. Electrocardiogram, 03/05/2017 at 1425 hours shows atrial fibrillation with rapid ventricular response, 129 beats per minute heart rate, poor R wave progression, low limb lead voltages, subtle nonspecific ST-T abnormalities. Laboratory work, 03/05/2017 at 1444: Shows WBC 9.2, hemoglobin 12.5, hematocrit 39.3, platelets 418. PT/INR of 1.25. Sodium 138, potassium 4.1, chloride 106, CO2 22, BUN 24, creatinine 1.18, estimated GFR 46.7, calcium 8.7 (low), total bilirubin 0.5, CPK 41, CPK-MB 2.5, troponin I less than 0.02, total protein 7.2, albumin low at 3.1. TSH 3.410. NT-Pro-BNP 13,171. Laboratory work, 03/06/2017 shows sodium 141, potassium 3.8, chloride 108, CO2 24, BUN 27, creatinine 1.28, estimated GFR 42.9, calcium low at 8.5, magnesium 2.0. ASSESSMENT AND PLAN: 1. Persistent atrial fibrillation, new detection of atrial fibrillation with rapid ventricular rate, 03/06/2017. Patient is not symptomatic with palpitations. Duration of this patient's atrial fibrillation is not known with any degree of certainty. Agree with obtaining an echocardiogram, Doppler. Agree with addition of Eliquis and metoprolol. TSH was normal. Patient will have stool for occult blood ordered as she has been started on direct oral anticoagulant. 2. Diastolic heart failure (acute on chronic). Agree with obtaining an echocardiogram, Doppler. She is diuresing very well so far with furosemide 40 mg IV twice a day. Continue furosemide IV. Agree with addition of metoprolol tartrate. 3. Systemic hypertension. Blood pressure well controlled so far. Continue metoprolol tartrate and furosemide IV. 4. Abnormal ECG. Agree with echocardiogram, Doppler. Also recommend patient be on an 1800 mL per day oral fluid restriction, and low sodium DASH diet. Cardiac rehabilitation will be consulted. Thank you kindly for asking me to participate in the cardiac care of Mónica Rajput. A.[facility]. [facility] HOSPITALShaista
[2017-03-06 16:00] VITALS: BP 137/67
[2017-03-06 20:00] VITALS: BP 107/59
[2017-03-06] MEDS: rOPINIRole 1MG TAB PO SCH (21:54)
[2017-03-06] MEDS: LEVOTHYROXINE 112MCG TABLET (0.112MG) PO SCH (21:54)
[2017-03-06] MEDS: LATANOPROST 0.005% OPHTH SOLN 2.5 ML OU SCH (21:55)
[2017-03-06 23:59] VITALS: BP 108/62
[2017-03-07] MEDS: ONDANSETRON 4MG/2ML VIAL (J2405) IV PRN (03:18)
[2017-03-07 04:00] VITALS: BP 138/68
[2017-03-07 05:23] LABS: BASO # 0.1 10^3/uL (0.0-0.2); BASO % 1.3 % (0.0-1.0); EOS # 0.4 10^3/uL (0.0-0.50); EOS % 4.1 % (0.0-3.0); IMMATURE GRANULOCYTE % 0.3 % (0-0); LYMPH # 1.5 10^3/uL (1.5-4.5); LYMPH % 15.8 % (24.0-44.0); MEAN CORPUSCULAR HEMOGLOBIN 30.2 pg (27.0-33.0); MEAN CORPUSCULAR HGB CONC 32.3 g/dl (32.0-36.5); MEAN CORPUSCULAR VOLUME 93.5 fl (80.0-96.0); MONO # 1.3 10^3/uL (0.0-0.8); MONO % 13.1 % (0.0-5.0); NEUTROPHILS # 6.3 10^3/uL (1.8-7.7); NEUTROPHILS % 65.4 % (36.0-66.0); PLATELET COUNT, AUTOMATED 365 10^3/uL (150-450); RED CELL DISTRIBUTION WIDTH 13.5 % (11.5-14.5); WHITE BLOOD COUNT 9.6 10^3/uL (4.0-10.0)
[2017-03-07 05:41] LABS: CALCIUM LEVEL 8.5 MG/DL (8.8-10.2); CREATININE FOR GFR 1.44 MG/DL (0.55-1.02); GLOMERULAR FILTRATION RATE 37.1 (>32); MAGNESIUM LEVEL 1.8 MG/DL (1.8-2.4); POTASSIUM SERUM 3.3 MEQ/L (3.5-5.1)
[2017-03-07] MEDS ORDERED: POTASSIUM CHLORIDE 10 MEQ SR TABLET PO ONE (06:30)
[2017-03-07 08:03] VITALS: BP 127/87
--- NOTE | 2017-03-07 08:32 | ECGEPIP ---
Stationary ECG Study [facility] - ED Test Date: 2017-03-05 Pat Name: EAGLE RYDER Department: Room: - Gender: F Census Taker: naeem : 1935 Requested By: Shantell Christensen Order Number: [id number] Reading MD: Matthew Byrd Measurements Intervals [place] Rate: 129 P: DC: 0 QRS: 14 QRSD: 91 T: 13 QT: 330 QTc: 484 Interpretive Statements ATRIAL FIBRILLATION WITH RAPID VENTRICULAR RESPONSE RHYTHM CHANGE COMPARED TO 12/28/16 Electronically Signed On 03-07-2017 8:32:27 EST by Matthew Byrd
[2017-03-07] MEDS: APIXABAN 2.5 MG TAB (ELIQUIS) PO SCH ×2 (08:54→21:51)
[2017-03-07] MEDS: DOCUSATE SODIUM 100 MG CAP PO SCH ×2 (08:54→21:50)
[2017-03-07] MEDS: METOPROLOL TART 25 MG TABLET PO SCH ×2 (08:54→21:51)
[2017-03-07] MEDS: TORSEMIDE 5MG TABLET PO SCH ×2 (08:54→17:49)
[2017-03-07] MEDS: BRIMONIDINE 0.15% OPHTH SOLN 5 ML OU SCH ×2 (08:55→21:52)
--- NOTE | 2017-03-07 11:22 | IPNPDOC ---
Subjective Date Seen The patient was seen on 03/07/17. Subjective Chief Complaint/HPI The patient is a 81-year-old female admitted with a reason for visit of Atrial Fibrillation,Chf. Events since last encounter SOB has improved, however still complains of nausea, no chest pain , no cough , no abdominal pain , vomiting or diarrhea. leg swelling has improved. Objective Physical Examination General Exam: Positive: Alert, Cooperative, No Acute Distress Eye Exam: Positive: PERRLA, Conjunctiva & lids normal, EOMI, Negative: Sclera icteric, Ptosis ENT Exam: Positive: Atraumatic, Mucous membr. moist/pink, Pharynx Normal, Tongue Midline, Nares Patent, Negative: Pharyngeal Edema Neck Exam: Positive: Supple, JVD (~ 5cm), +2 carotid pulse wo bruit, Negative: thyromegaly, Lymphadenopathy Chest Exam: Positive: Clear to auscultation, Normal air movement Heart Exam: Positive: Tachycardic, Irregular Rhythm, Negative: Gallops, Murmurs, Rubs Telemetry: Positive: Atrial fibrillation Abdomen Exam: Positive: BS Hypoactive, Soft, Negative: Tenderness, Hepatospenomegaly, Mass, Hernia Extremity Exam: Positive: Edema (+1-2 pitting edema up to the level of the tibial tuberosity bilaterally), Swelling, Negative: Clubbing, Cyanosis, Normal pulses, Tenderness Skin Exam: Negative: Rash, Lesion Neuro Exam: Positive: Normal Speech, Cranial Nerves 3-12 NL Assessment /Plan Problems (1) Atrial fibrillation Status: Acute Problem Text: rate still not controlled ranging from 90 to 120. on metoprolol currently on metoprolol 25 bid. started on eliquis. echo reviewed shows severe pulmonary hypertension with right heart failure. Preserved systolic function. Dr Quach following (2) CHF (congestive heart failure) Status: Acute Response to Treatment: Improving Problem Text: diastolic CHF acute on chronic with right heart failure fluid status has improved after iv lasix. continue fluid restriction and DASH diet. continue torsemide. (3) CKD (chronic kidney disease), stage III Status: Chronic (4) Hypothyroid Status: Chronic (5) Anemia Status: Chronic Problem Text: has iron deficiency anemia. (6) Restless leg syndrome Status: Chronic (7) Glaucoma Status: Chronic (8) Overactive bladder Status: Chronic (9) Pulmonary hypertension Status: Chronic Problem Text: severe continue torsemide. (10) Right heart failure Status: Acute Problem Text: acute on chronic continue torsemide Plan/VTE VTE Prophylaxis Ordered?: Yes (Eliquis 2.5mg PO BID) Plan Diet: Continue Current (No added salt) Activity: Continue Current Therapy: PT Diagnostics: Check Labs, Repeat Labs in AM, TTE VS, I&O, 24H, Fishbone Vital Signs/I&O Vital Signs Date Time Temp Pulse Resp B/P (MAP) Pulse Ox O2 Delivery O2 Flow Rate FiO2 03/07/17 08:54 79 127/87 03/07/17 08:03 97.1 19 97 Room Air I&O- Last 24 Hours up to 6 AM 03/08/17 06:00 Intake Total 480 ml Output Total 0 ml Balance 480 ml Laboratory Data 24H LABS Laboratory Tests 2 03/07/17 04:40: Immature Granulocyte % (Auto) 0.3H, White Blood Count 9.6, Red Blood Count 3.97L , Hemoglobin 12.0, Hematocrit 37.1, Mean Corpuscular Volume 93.5, Mean Corpuscular Hemoglobin 30.2, Mean Corpuscular Hemoglobin Concent 32.3, Red Cell Distribution Width 13.5, Platelet Count 365, Neutrophils (%) (Auto) 65.4, Lymphocytes (%) (Auto) 15.8L, Monocytes (%) (Auto) 13.1H, Eosinophils (%) (Auto ) 4.1H, Basophils (%) (Auto) 1.3H, Neutrophils # (Auto) 6.3, Lymphocytes # (Auto ) 1.5, Monocytes # (Auto) 1.3H, Eosinophils # (Auto) 0.4, Basophils # (Auto) 0.1 , Immature Granulocyte # (Auto) 0.0, Nucleated Red Blood Cells % (auto) 0.0, Anion Gap 10, Glomerular Filtration Rate 37.1, Blood Urea Nitrogen 34H, Creatinine 1.44H, Sodium Level 140, Potassium Level 3.3L, Chloride Level 103, Carbon Dioxide Level 27, Calcium Level 8.5L, Magnesium Level 1.8 CBC/BMP Laboratory Tests 03/07/17 04:40 Red Blood Count 3.97 L, Mean Corpuscular Volume 93.5, Mean Corpuscular Hemoglobin 30.2, Mean Corpuscular Hemoglobin Concent 32.3, Red Cell Distribution Width 13.5, Neutrophils (%) (Auto) 65.4, Lymphocytes (%) (Auto) 15.8 L, Monocytes (%) (Auto) 13.1 H, Eosinophils (%) (Auto) 4.1 H, Basophils (% ) (Auto) 1.3 H, Neutrophils # (Auto) 6.3, Lymphocytes # (Auto) 1.5, Monocytes # (Auto) 1.3 H, Eosinophils # (Auto) 0.4, Basophils # (Auto) 0.1, Calcium Level 8.5 L ESTHER MOCTEZUMA MD Mar 07, 2017 11:21
[2017-03-07 12:19] VITALS: BP 112/63
[2017-03-07 14:09] VITALS: BP 113/65
[2017-03-07] MEDS ORDERED: DIGOXIN 0.25 MG TAB PO ONE ×2 (14:30→18:30)
[2017-03-07] MEDS: BISACODYL 5 MG TAB PO SCH (15:24)
[2017-03-07 16:00] VITALS: BP 134/71
[2017-03-07 20:00] VITALS: BP 154/86
[2017-03-07] MEDS: LEVOTHYROXINE 112MCG TABLET (0.112MG) PO SCH (21:51)
[2017-03-07] MEDS: rOPINIRole 1MG TAB PO SCH (21:51)
[2017-03-07] MEDS: traMADol 50 MG TAB PO PRN (21:52)
[2017-03-07] MEDS: LATANOPROST 0.005% OPHTH SOLN 2.5 ML OU SCH (21:53)
[2017-03-08] VITALS: BP 132/70
[2017-03-08] MEDS: ONDANSETRON 4MG/2ML VIAL (J2405) IV PRN (02:07)
[2017-03-08 04:00] VITALS: BP 143/75
[2017-03-08 06:08] LABS: BASO # 0.1 10^3/uL (0.0-0.2); BASO % 1.1 % (0.0-1.0); EOS # 0.4 10^3/uL (0.0-0.50); EOS % 3.4 % (0.0-3.0); IMMATURE GRANULOCYTE % 0.5 % (0-0); LYMPH # 1.8 10^3/uL (1.5-4.5); LYMPH % 15.6 % (24.0-44.0); MEAN CORPUSCULAR HEMOGLOBIN 30.6 pg (27.0-33.0); MEAN CORPUSCULAR HGB CONC 32.7 g/dl (32.0-36.5); MEAN CORPUSCULAR VOLUME 93.4 fl (80.0-96.0); MONO # 1.5 10^3/uL (0.0-0.8); NEUTROPHILS # 7.6 10^3/uL (1.8-7.7); NEUTROPHILS % 66.4 % (36.0-66.0); PLATELET COUNT, AUTOMATED 396 10^3/uL (150-450); RED CELL DISTRIBUTION WIDTH 13.4 % (11.5-14.5); WHITE BLOOD COUNT 11.4 10^3/uL (4.0-10.0)
[2017-03-08 06:27] LABS: CALCIUM LEVEL 8.8 MG/DL (8.8-10.2); CREATININE FOR GFR 1.4 MG/DL (0.55-1.02); GLOMERULAR FILTRATION RATE 38.3 (>32); MAGNESIUM LEVEL 1.9 MG/DL (1.8-2.4); POTASSIUM SERUM 3.3 MEQ/L (3.5-5.1)
[2017-03-08] MEDS ORDERED: POTASSIUM CHLORIDE 10 MEQ SR TABLET PO ONE (07:45)
[2017-03-08 08:20] VITALS: BP 134/71
[2017-03-08] MEDS: BISACODYL 5 MG TAB PO SCH (08:32)
[2017-03-08] MEDS: TORSEMIDE 5MG TABLET PO SCH (08:32)
[2017-03-08 08:33] VITALS: BP 134/71
[2017-03-08] MEDS: DOCUSATE SODIUM 100 MG CAP PO SCH (08:33)
[2017-03-08] MEDS: METOPROLOL TART 25 MG TABLET PO SCH (08:33)
[2017-03-08] MEDS: APIXABAN 2.5 MG TAB (ELIQUIS) PO SCH (08:33)
[2017-03-08] MEDS: traMADol 50 MG TAB PO PRN (08:36)
[2017-03-08] MEDS ORDERED: PNEUMOCOCCAL VACCINE 0.5ML SYRINGE(90732) PNEUMOVAX 23 IM ONE (09:00)
[2017-03-08] MEDS: BRIMONIDINE 0.15% OPHTH SOLN 5 ML OU SCH (09:01)
[2017-03-08] MEDS ORDERED: TORS5TAB2 PO (09:49)
[2017-03-08] MEDS ORDERED: ELIQ2.5T PO (09:49)
[2017-03-08] MEDS ORDERED: METO1TAB87 PO (09:49)
[2017-03-08 11:40] VITALS: BP 127/66
--- NOTE | 2017-03-08 16:29 | DSES ---
DATE OF ADMISSION: 03/05/2017 DATE OF DISCHARGE: 03/08/2017 CONSULTANTS DURING THIS ADMISSION: Process Designer, Dr. Quach. The patient sees Dr. Pruitt as an outpatient. PRIMARY DISCHARGE DIAGNOSES: 1. Newly discovered atrial fibrillation with rapid ventricular response. 2. Acute on chronic diastolic heart failure. 3. Hypertension. 4. Moderate tricuspid regurgitation. 5. Hypothyroidism. 6. Restless legs. 7. Pernicious anemia. 8. Chronic pain. 9. Glaucoma. 10. History of tubular adenoma. 11. Chronic gastritis. 12. History of Helicobacter (H) pylori. DISCHARGE MEDICATIONS: - apixaban 2.5 mg twice a day - metoprolol 25 mg twice a day - torsemide 10 mg twice a day - acetaminophen 650 mg every 8 hours - aspirin 81 mg daily as needed for pain - brimonidine one drop both eyes twice a day - Colace 300 mg twice a day - latanoprost one drop both eyes nightly - Synthroid 112 mcg nightly - Myrbetriq 50 mg every evening - ropinirole 2 mg nightly - Slow Iron 142 mg every evening - tramadol 50 mg by mouth every 6 hours as needed for pain HOSPITAL COURSE: This is an 81-year-old female, presented to the emergency room with lower extremity edema, shortness of breath, was given antibiotics as an outpatient, prior to admission, no fever or chills. The patient had no orthopnea or paroxysmal nocturnal dyspnea (PND). No presyncope or syncope. Has had a nonproductive cough for 3 weeks. Chest x-ray shows probable cardiomegaly, small bilateral effusion, pulmonary vascular redistribution. EKG shows atrial fibrillation with rapid ventricular response (RVR), ventricular rate of 129, poor R wave progression. Systolic pressure was 135/68. The patient was given metoprolol tartrate 25 mg twice a day, started on Eliquis, Lasix, transitioned to torsemide 10 mg twice a day. Admission weight was 46.9 kg, discharge weight 42.1 kg. The patient had been net negative balance throughout the entire admission. She had episodes of potassium of 3.3, which was supplemented. Creatinine is at baseline, 1.2 to 1.4. The patient felt symptomatic relief from shortness of breath and lower extremity edema improved. Vascular ultrasound lower extremities was negative for deep vein thrombosis (DVT). Cipro was discontinued. The patient passed a home safety evaluation and was discharged home safely. Echocardiogram, Dr. Quach, showed diastolic dysfunction, ejection fraction (EF) 60%, moderate tricuspid regurgitation. LABS ON DISCHARGE: White count 11.4, hemoglobin 12, hematocrit 37, platelet count 396. Sodium 141, potassium 3.3, chloride 103, bicarbonate 28, BUN 37, creatinine 1.4, glucose of 96, magnesium of 1.9. TIME SPENT ON DISCHARGE: 30 minutes. MTDD
== END 2017-03-08 14:10 | disposition home or self-care (01) | DRG 291 ==
LOC: M ED 14:11 → M ED INP 17:58 → M PCU 19:55
PROVIDERS: ADMIT Hospitalist; ATTEND General Practice
DX: I13.0 Hypertensive heart and chronic kidney disease with heart failure and stage 1 through stage 4 chronic kidney disease, or unspecified chronic kidney disease (principal); I50.33 Acute on chronic diastolic (congestive) heart failure; I48.1 Persistent atrial fibrillation; E03.9 Hypothyroidism, unspecified; G25.81 Restless legs syndrome; N18.3 Chronic kidney disease, stage 3 (moderate); D51.0 Vitamin B12 deficiency anemia due to intrinsic factor deficiency; G89.29 Other chronic pain; H40.9 Unspecified glaucoma; K59.00 Constipation, unspecified; I36.1 Nonrheumatic tricuspid (valve) insufficiency; N32.81 Overactive bladder; K29.50 Unspecified chronic gastritis without bleeding; Z79.899 Other long term (current) drug therapy; Z91.030 Bee allergy status; Z88.6 Allergy status to analgesic agent; Z88.2 Allergy status to sulfonamides; Z88.5 Allergy status to narcotic agent; Z88.8 Allergy status to other drugs, medicaments and biological substances; Z96.651 Presence of right artificial knee joint; Z79.82 Long term (current) use of aspirin

== ENCOUNTER → 2017-03-05 | Outpatient (CLI) | payer MEDICARE, OTHER ==
[~2017-03-05] MED LIST: ALEV220C2 PO; ALPH0.156 OU; ASPI1TAB PO; ASPI325T PO; CIPR500T3 PO; COLA100C5 PO; LATA5OPD OU; LEVO112T2 PO; MYRB50TA PO; ROPI1TAB PO; SLOW142T PO; TRAM50TA2 PO; TYLE650T35 PO; latanaprost OU
--- NOTE | 2017-03-05 13:44 | REP ---
Clinical: Shortness of breath. Technique: PA and lateral. Comparison: 12/28/2016. Findings: Pulmonary vascular congestion with cephalization, interstitial edema, bibasilar consolidations and pleural effusions noted. No pneumothorax. Visualized mediastinum and cardiac silhouette stable. Skeletal structures intact. Impression: Findings most compatible with CHF/pulmonary edema including basilar consolidations and effusions. Differential diagnosis includes multifocal pneumonia. Signed by Fan Hightower MD 03/05/2017 01:35 P
== END ==
LOC: M LRY 13:01
PROVIDERS: ATTEND Nurse Practitioner Family
DX: R91.8 Other nonspecific abnormal finding of lung field (principal)

== ENCOUNTER 2017-03-30 15:41 | Inpatient (IN) | payer MEDICARE, BC, OTHER ==
[2017-03-30] MEDS: DIGOXIN INJ 0.5 MG/2 ML AMP (J1160) IV ×3 (16:23→22:00)
[2017-03-30 16:24] LABS: BASO # 0.1 10^3/uL (0.0-0.2); BASO % 0.8 % (0.0-1.0); EOS # 0.2 10^3/uL (0.0-0.50); EOS % 1.6 % (0.0-3.0); IMMATURE GRANULOCYTE # 0.1 10^3/uL (0-0); IMMATURE GRANULOCYTE % 0.5 % (0-0); LYMPH # 2.3 10^3/uL (1.5-4.5); LYMPH % 19.5 % (24.0-44.0); MEAN CORPUSCULAR HEMOGLOBIN 30.3 pg (27.0-33.0); MEAN CORPUSCULAR HGB CONC 32.1 g/dl (32.0-36.5); MEAN CORPUSCULAR VOLUME 94.5 fl (80.0-96.0); MONO # 1.5 10^3/uL (0.0-0.8); MONO % 12.8 % (0.0-5.0); NEUTROPHILS # 7.7 10^3/uL (1.8-7.7); NEUTROPHILS % 64.8 % (36.0-66.0); PLATELET COUNT, AUTOMATED 400 10^3/uL (150-450); RED CELL DISTRIBUTION WIDTH 13.9 % (11.5-14.5); WHITE BLOOD COUNT 11.9 10^3/uL (4.0-10.0)
[2017-03-30 16:40] LABS: INR 1.51
[2017-03-30 16:51] LABS: ALBUMIN 3.7 GM/DL (3.2-5.2); ALBUMIN/GLOBULIN RATIO 0.97 (1.00-1.93); ALKALINE PHOSPHATASE 137 U/L (45-117); ALT/SGPT 89 U/L (12-78); ANION GAP 11 MEQ/L (8-16); AST/SGOT 76 U/L (7-37); BILIRUBIN,DIRECT 0.3 MG/DL (0.0-0.2); BILIRUBIN,TOTAL 0.8 MG/DL (0.2-1.0); BLOOD UREA NITROGEN 44 MG/DL (7-18); CALCIUM LEVEL 8.5 MG/DL (8.8-10.2); CARBON DIOXIDE LEVEL 25 MEQ/L (21-32); CHLORIDE LEVEL 100 MEQ/L (98-107); CREATININE FOR GFR 1.55 MG/DL (0.55-1.02); FREE T4 1.53 NG/DL (0.76-1.46); GLOMERULAR FILTRATION RATE 34.1 (>32); GLUCOSE, FASTING 94 MG/DL (83-110); MAGNESIUM LEVEL 2.8 MG/DL (1.8-2.4); POTASSIUM SERUM 4.7 MEQ/L (3.5-5.1); SODIUM LEVEL 136 MEQ/L (136-145); TOTAL PROTEIN 7.5 GM/DL (6.4-8.2)
[2017-03-30] MEDS ORDERED: traMADol 50 MG TAB PO (18:30)
[2017-03-30 18:42] LABS: PHOSPHORUS LEVEL 4.5 MG/DL (2.5-4.9)
[2017-03-30] MEDS: APIXABAN 2.5 MG TAB (ELIQUIS) PO (22:33)
[2017-03-30] MEDS: DOCUSATE SODIUM 100 MG CAP PO (22:33)
[2017-03-30] MEDS: METOPROLOL TARTRATE 100 MG TAB PO (22:34)
[2017-03-30] MEDS: SENOKOT S TAB PO (22:35)
[2017-03-30] MEDS: rOPINIRole 1MG TAB PO (22:57)
[2017-03-30] MEDS: LATANOPROST 0.005% OPHTH SOLN 2.5 ML OU (22:57)
[2017-03-30] MEDS: BRIMONIDINE 0.15% OPHTH SOLN 5 ML OU (22:57)
[2017-03-31] MEDS: LEVOTHYROXINE 112MCG TABLET (0.112MG) PO (05:50)
[2017-03-31 05:52] LABS: BASO # 0.1 10^3/uL (0.0-0.2); BASO % 0.8 % (0.0-1.0); EOS # 0.2 10^3/uL (0.0-0.50); EOS % 2.6 % (0.0-3.0); IMMATURE GRANULOCYTE % 0.2 % (0-0); LYMPH # 1.6 10^3/uL (1.5-4.5); LYMPH % 18.6 % (24.0-44.0); MEAN CORPUSCULAR HEMOGLOBIN 29.9 pg (27.0-33.0); MEAN CORPUSCULAR HGB CONC 31.8 g/dl (32.0-36.5); MEAN CORPUSCULAR VOLUME 94.1 fl (80.0-96.0); MONO # 0.9 10^3/uL (0.0-0.8); NEUTROPHILS # 5.9 10^3/uL (1.8-7.7); NEUTROPHILS % 67.8 % (36.0-66.0); PLATELET COUNT, AUTOMATED 301 10^3/uL (150-450); RED CELL DISTRIBUTION WIDTH 13.6 % (11.5-14.5); WHITE BLOOD COUNT 8.7 10^3/uL (4.0-10.0)
[2017-03-31] MEDS: ONDANSETRON 4MG/2ML VIAL (J2405) IV (05:56)
[2017-03-31 06:07] LABS: ANION GAP 7 MEQ/L (8-16); BLOOD UREA NITROGEN 33 MG/DL (7-18); CALCIUM LEVEL 8.2 MG/DL (8.8-10.2); CARBON DIOXIDE LEVEL 27 MEQ/L (21-32); CHLORIDE LEVEL 106 MEQ/L (98-107); CREATININE FOR GFR 1.31 MG/DL (0.55-1.02); GLOMERULAR FILTRATION RATE 41.4 (>32); GLUCOSE, FASTING 88 MG/DL (83-110); POTASSIUM SERUM 4.3 MEQ/L (3.5-5.1); SODIUM LEVEL 140 MEQ/L (136-145)
[2017-03-31] MEDS: SENOKOT S TAB PO ×2 (08:50→21:17)
[2017-03-31] MEDS: DOCUSATE SODIUM 100 MG CAP PO ×2 (08:50→21:12)
[2017-03-31] MEDS: DIGOXIN 0.125 MG TAB PO (08:50)
[2017-03-31] MEDS: APIXABAN 2.5 MG TAB (ELIQUIS) PO ×2 (08:50→21:15)
[2017-03-31] MEDS: BRIMONIDINE 0.15% OPHTH SOLN 5 ML OU ×2 (08:51→21:10)
[2017-03-31] MEDS: METOPROLOL TARTRATE 100 MG TAB PO ×2 (08:51→21:16)
[2017-03-31] MEDS: SODIUM CHLORIDE NASAL 0.65% SPRAY BTL (OCEAN) (12:17)
[2017-03-31] MEDS: ACETAMINOPHEN 650MG ER TAB (TYLENOL ARTHRITIS) PO (15:22)
[2017-03-31] MEDS ORDERED: SLF 3 ML SYR IV (16:30)
[2017-03-31] MEDS: rOPINIRole 1MG TAB PO (21:16)
[2017-03-31] MEDS: LATANOPROST 0.005% OPHTH SOLN 2.5 ML OU (21:17)
[2017-03-31] MEDS: SLF 3 ML SYR IV (21:17)
[2017-04-01] MEDS: ONDANSETRON 4MG/2ML VIAL (J2405) IV (04:55)
[2017-04-01] MEDS: SLF 3 ML SYR IV (05:00)
[2017-04-01] MEDS: LEVOTHYROXINE 112MCG TABLET (0.112MG) PO (06:26)
[2017-04-01] MEDS: METOPROLOL TARTRATE 100 MG TAB PO (09:18)
[2017-04-01] MEDS: DOCUSATE SODIUM 100 MG CAP PO (09:18)
[2017-04-01] MEDS: SENOKOT S TAB PO (09:18)
[2017-04-01] MEDS: DIGOXIN 0.125 MG TAB PO (09:18)
[2017-04-01] MEDS: BRIMONIDINE 0.15% OPHTH SOLN 5 ML OU (09:19)
[2017-04-01] MEDS: APIXABAN 2.5 MG TAB (ELIQUIS) PO (09:19)
[2017-04-01 10:11] LABS: BASO # 0.1 10^3/uL (0.0-0.2); EOS # 0.2 10^3/uL (0.0-0.50); EOS % 1.9 % (0.0-3.0); IMMATURE GRANULOCYTE % 0.5 % (0-0); LYMPH # 0.9 10^3/uL (1.5-4.5); LYMPH % 11.2 % (24.0-44.0); MEAN CORPUSCULAR HEMOGLOBIN 30.2 pg (27.0-33.0); MEAN CORPUSCULAR HGB CONC 31.8 g/dl (32.0-36.5); MEAN CORPUSCULAR VOLUME 95.1 fl (80.0-96.0); MONO # 0.6 10^3/uL (0.0-0.8); MONO % 7.4 % (0.0-5.0); NEUTROPHILS # 6.1 10^3/uL (1.8-7.7); PLATELET COUNT, AUTOMATED 315 10^3/uL (150-450); RED CELL DISTRIBUTION WIDTH 13.7 % (11.5-14.5); WHITE BLOOD COUNT 7.8 10^3/uL (4.0-10.0)
[2017-04-01 10:58] LABS: ALBUMIN 2.9 GM/DL (3.2-5.2); ALBUMIN/GLOBULIN RATIO 0.85 (1.00-1.93); ALKALINE PHOSPHATASE 106 U/L (45-117); ALT/SGPT 54 U/L (12-78); ANION GAP 7 MEQ/L (8-16); AST/SGOT 29 U/L (7-37); BILIRUBIN,TOTAL 0.6 MG/DL (0.2-1.0); BLOOD UREA NITROGEN 27 MG/DL (7-18); CALCIUM LEVEL 8.6 MG/DL (8.8-10.2); CARBON DIOXIDE LEVEL 26 MEQ/L (21-32); CHLORIDE LEVEL 106 MEQ/L (98-107); CREATININE FOR GFR 1.23 MG/DL (0.55-1.02); DIGOXIN LEVEL 1.5 NG/ML (0.5-2.0); GLOMERULAR FILTRATION RATE 44.5 (>32); GLUCOSE, FASTING 166 MG/DL (83-110); MAGNESIUM LEVEL 2.1 MG/DL (1.8-2.4); POTASSIUM SERUM 4.1 MEQ/L (3.5-5.1); SODIUM LEVEL 139 MEQ/L (136-145); TOTAL PROTEIN 6.3 GM/DL (6.4-8.2)
== END 2017-04-01 13:00 | disposition home or self-care (01) | DRG 308 ==
LOC: M ED 15:41 → M ED INP 17:43 → M PCU 20:26
DX: I48.1 Persistent atrial fibrillation (principal); I50.33 Acute on chronic diastolic (congestive) heart failure; I13.0 Hypertensive heart and chronic kidney disease with heart failure and stage 1 through stage 4 chronic kidney disease, or unspecified chronic kidney disease; D51.0 Vitamin B12 deficiency anemia due to intrinsic factor deficiency; G25.81 Restless legs syndrome; G89.29 Other chronic pain; N18.3 Chronic kidney disease, stage 3 (moderate); H40.9 Unspecified glaucoma; K59.00 Constipation, unspecified; K29.50 Unspecified chronic gastritis without bleeding; E03.9 Hypothyroidism, unspecified; I27.22 Pulmonary hypertension due to left heart disease; Z88.5 Allergy status to narcotic agent; Z88.6 Allergy status to analgesic agent; Z88.2 Allergy status to sulfonamides; Z88.8 Allergy status to other drugs, medicaments and biological substances; I34.0 Nonrheumatic mitral (valve) insufficiency; M54.5 Low back pain; Z79.01 Long term (current) use of anticoagulants; Z96.652 Presence of left artificial knee joint; Z79.899 Other long term (current) drug therapy; Z91.030 Bee allergy status

== ENCOUNTER → 2017-08-08 | Outpatient (REF) | payer MEDICARE, OTHER, BC ==
[2017-08-08 12:40] LABS: ANION GAP 8 MEQ/L (8-16); BLOOD UREA NITROGEN 39 MG/DL (7-18); CARBON DIOXIDE LEVEL 25 MEQ/L (21-32); CHLORIDE LEVEL 107 MEQ/L (98-107); CREATININE FOR GFR 1.39 MG/DL (0.55-1.30); GLOMERULAR FILTRATION RATE 38.6 (>32); GLUCOSE, FASTING 100 MG/DL (70-100); POTASSIUM SERUM 4.3 MEQ/L (3.5-5.1); SODIUM LEVEL 140 MEQ/L (136-145)
== END ==
LOC: M LABDRAW1 10:02
DX: I10 Essential (primary) hypertension (principal); I48.91 Unspecified atrial fibrillation
CPT/HCPCS: 80048

== ENCOUNTER → 2018-02-15 | Outpatient (REF) | payer MEDICARE, OTHER | LOC: M LAB REF 15:50 | DX: M48.07 Spinal stenosis, lumbosacral region (principal); Z79.899 Other long term (current) drug therapy | CPT/HCPCS: 80307 ==

== ENCOUNTER → 2018-09-13 | Outpatient (REF) | payer MEDICARE, OTHER ==
[~2018-09-13] MED LIST changes: +ASPI-1 PO; -ASPI1TAB PO; -ASPI325T PO; +ASPI81TA26 PO; +DIGO0.12 PO; +ELIQ2.5T PO; +LATA0.0013 OU; -LATA5OPD OU; +METO100T5 PO; +METO1TAB87 PO; +METO37.5 PO; +TORS10TA3 PO; +TORS5TAB2 PO
== END ==
LOC: M LAB LCGH 13:23
PROVIDERS: ATTEND Nurse Practitioner Family
DX: D48.9 Neoplasm of uncertain behavior, unspecified (principal)

== ENCOUNTER 2019-02-05 11:40 | Emergency (ER) | payer MEDICARE, BC, OTHER ==
[~2019-02-05] VITALS: Ht 149.9 cm; Wt 43.6 kg
[2019-02-05] MEDS ORDERED: TRIA37.53 (12:29)
[2019-02-05] MEDS ORDERED: BAYE325T12 PO (12:29)
[2019-02-05 12:38] LABS: BASO # 0.1 10^3/uL (0.0-0.2); BASO % 0.9 % (0.0-1.0); EOS # 0.1 10^3/uL (0.0-0.5); EOS % 0.9 % (0.0-3.0); HEMATOCRIT 36.6 % (36.0-47.0); LYMPH # 1.1 10^3/uL (1.5-5.0); LYMPH % 15.3 % (24.0-44.0); MEAN CORPUSCULAR HEMOGLOBIN 32.2 pg (27.0-33.0); MEAN CORPUSCULAR HGB CONC 32.8 g/dl (32.0-36.5); MEAN CORPUSCULAR VOLUME 98.1 fl (80.0-96.0); MONO # 0.9 10^3/uL (0.0-0.8); MONO % 11.6 % (0.0-5.0); NEUTROPHILS # 5.2 10^3/uL (1.5-8.5); PLATELET COUNT, AUTOMATED 386 10^3/uL (150-450); RED BLOOD COUNT 3.73 10^6/uL (4.00-5.40); WHITE BLOOD COUNT 7.4 10^3/uL (4.0-10.0)
--- NOTE | 2019-02-05 12:44 | REP ---
Clinical: Acute chest pain . Comparison: 04/30/2016 . Findings: The mediastinum and cardiac silhouette are stable and within normal limits for portable technique. The lung nash demonstrate chronic changes without acute consolidation, effusion, or pneumothorax. Skeletal structures are intact. Impression: No acute cardiopulmonary process appreciated. Electronically Signed by Fan Hightower MD 02/05/2019 12:35 P
[2019-02-05 13:13] LABS: BLOOD UREA NITROGEN 34 MG/DL (7-18); CALCIUM LEVEL 9.6 MG/DL (8.8-10.2); CARBON DIOXIDE LEVEL 28 MEQ/L (21-32); CHLORIDE LEVEL 104 MEQ/L (98-107); CK-MB VALUE MASS 1.8 NG/ML (<3.6); CPK CREATINE PHOSPHOKINASE 75 U/L (26-192); CREATININE FOR GFR 1.49 MG/DL (0.55-1.30); GLOMERULAR FILTRATION RATE 35.5 (>32); GLUCOSE, FASTING 115 MG/DL (70-100); POTASSIUM SERUM 4.1 MEQ/L (3.5-5.1); SODIUM LEVEL 137 MEQ/L (136-145); TROPONIN I < 0.02 NG/ML (< 0.10)
[2019-02-05 13:30] VITALS: BP 111/55
--- NOTE | 2019-02-05 20:35 | ECGEPIP ---
[facility] - ED Test Date: 2019-02-05 Pat Name: EAGLE RYDER Department: Room: - Gender: Female Brick Picker: : [phone] Requested By: Shantell Christensen Order Number: [id number] Reading MD: Aleta Alberto Measurements Intervals [place] Rate: 56 P: 18 ID: [id number] QRS: 11 QRSD: 84 T: -8 QT: 430 QTc: 418 Interpretive Statements SINUS BRADYCARDIA NONSPECIFIC ST T WAVE CHANGES DELAYED R WAVE PROGRESSION 04/01/17 RATE DECREASED RHYTHM CHANGES NONSPECIFIC ST T WAVE CHANGES Electronically Signed on 02-05-2019 20:35:22 EDT by Aleta Alberto
== END 2019-02-05 13:44 | disposition home or self-care (01) ==
LOC: M ED 11:40
DX: R07.89 Other chest pain (principal); R00.1 Bradycardia, unspecified; I11.0 Hypertensive heart disease with heart failure; I50.9 Heart failure, unspecified; Z86.79 Personal history of other diseases of the circulatory system; Z88.2 Allergy status to sulfonamides; Z88.5 Allergy status to narcotic agent; Z88.6 Allergy status to analgesic agent; Z91.030 Bee allergy status; Z79.899 Other long term (current) drug therapy; Z79.82 Long term (current) use of aspirin; Z79.01 Long term (current) use of anticoagulants

== ENCOUNTER → 2019-06-27 | Outpatient (REF) | payer OTHER, MEDICARE, BC ==
[~2019-06-27] MED LIST changes: +BAYE325T12 PO; -DIGO0.12 PO; +DIGO0.123 PO; -ROPI1TAB PO; +ROPI1TAB3 PO; +TRIA37.53
[2019-06-27 15:46] LABS: AMPHETAMINES URINE REFLEX NEGATIVE (NEGATIVE); BARBITURATES URINE REFLEX NEGATIVE (NEGATIVE); BENZODIAZEPINES URINE REFLEX NEGATIVE (NEGATIVE); CANNABINOIDS URINE REFLEX NEGATIVE (NEGATIVE); COCAINE METABOLITE URINE REFLE NEGATIVE (NEGATIVE); METHADONE URINE REFLEX NEGATIVE (NEGATIVE); OPIATES URINE REFLEX NEGATIVE (NEGATIVE); PHENCYCLIDINE URINE REFLEX NEGATIVE (NEGATIVE)
== END ==
LOC: M LABDRAW1 13:53
PROVIDERS: ATTEND Physical Medicine & Rehabilitation
DX: M48.07 Spinal stenosis, lumbosacral region (principal)

== ENCOUNTER → 2019-09-18 | Outpatient (CLI) | payer MEDICARE, OTHER, BC ==
[2019-09-18 11:24] LABS: HEMATOCRIT 36.8 % (36.0-47.0); HEMOGLOBIN 12.3 g/dl (12.0-15.5); MEAN CORPUSCULAR HEMOGLOBIN 32.8 pg (27.0-33.0); MEAN CORPUSCULAR HGB CONC 33.4 g/dl (32.0-36.5); MEAN CORPUSCULAR VOLUME 98.1 fl (80.0-96.0); PLATELET COUNT, AUTOMATED 358 10^3/uL (150-450); RED BLOOD COUNT 3.75 10^6/uL (4.00-5.40); WHITE BLOOD COUNT 6.6 10^3/uL (4.0-10.0)
[2019-09-18 11:47] LABS: HEMOGLOBIN A1c 6.2 %
[2019-09-18 12:11] LABS: ALBUMIN 3.7 GM/DL (3.2-5.2); BILIRUBIN,TOTAL 0.4 MG/DL (0.2-1.0); CALCIUM LEVEL 9.3 MG/DL (8.8-10.2); CHOLESTEROL RISK RATIO 4.673 (<5); CREATININE FOR GFR 1.36 MG/DL (0.55-1.30); GLOMERULAR FILTRATION RATE 39.3 (>32); THYROID STIMULATING HORMONE 0.038 uIU/ML (0.358-3.740); TOTAL 25(OH) VITAMIN D 39.1 NG/ML (30.0-100.0); TOTAL PROTEIN 6.8 GM/DL (6.4-8.2)
== END ==
LOC: M LAB 10:36
PROVIDERS: ATTEND Family Medicine
DX: D64.9 Anemia, unspecified (principal); R53.83 Other fatigue; E03.9 Hypothyroidism, unspecified

== ENCOUNTER → 2020-01-18 | Outpatient (CLI) | payer OTHER, MEDICARE, BC ==
[~2020-01-18] MED LIST changes: +ACET650T61 PO; -TYLE650T35 PO
[2020-01-18 14:20] LABS: CREATININE FOR GFR 1.21 MG/DL (0.55-1.30)
== END ==
LOC: M LAB 12:30
PROVIDERS: ATTEND Physical Medicine & Rehabilitation
DX: M47.27 Other spondylosis with radiculopathy, lumbosacral region (principal)

== ENCOUNTER → 2020-08-26 | Outpatient (REF) | payer OTHER, MEDICARE | LOC: M LAB REF 12:41 | PROVIDERS: ATTEND Physical Medicine & Rehabilitation | DX: M48.07 Spinal stenosis, lumbosacral region (principal) ==

== ENCOUNTER → 2020-12-16 | Outpatient (CLI) | payer MEDICARE, OTHER ==
[2020-12-16 14:15] LABS: CREATININE FOR GFR 1.15 MG/DL (0.55-1.30); GLOMERULAR FILTRATION RATE 47.6 (>32)
== END ==
LOC: M PLALAB 11:27
PROVIDERS: ATTEND Physical Medicine & Rehabilitation
DX: M48.07 Spinal stenosis, lumbosacral region (principal)

== ENCOUNTER → 2020-12-17 | Outpatient (CLI) | payer OTHER ==
[~2020-12-17] MED LIST changes: +PROHANCE 279.3MG/ML 15ML VIAL ONE
--- NOTE | 2020-12-18 08:14 | REP ---
INDICATION: SPINAL STENOSIS, R/O HNP/STENOSIS, COMP /01/30/20. Repeat dictation. Preliminary report is provided at the time of the exam by poncho ARANDA. COMPARISON: Comparison MRI study is from January 30, 2020. TECHNIQUE: Sagittal and axial T1 and T2-weighted scans are acquired in the usual fashion with and without fat saturation. Sequences include spin echo, turbo spin-echo, and STIR imaging sequences. Gadolinium enhancement dose is 4.5 mL of intravenous ProHance. Post gadolinium enhanced sagittal and axial images are acquired. FINDINGS: There is a severe levoconvex lumbar scoliosis again noted. No extra vertebral abnormality is noted. Normal caliber aorta. The tip of the conus medullaris is normal in position and appearance at L1. The T12-L1 disc margin is unremarkable posteriorly. At L1-L2, there is degenerative disc narrowing and desiccation. Central disc bulging is seen. There is some facet hypertrophy bilaterally. Bilateral neural foraminal narrowing is evident right more so than left. At L2-3, there is degenerative disc narrowing, diffuse posterior disc bulging and osteophytic ridging indenting the ventral margin of the thecal sac. There is facet hypertrophy particularly on the right with ligamentum flavum hypertrophy. This indents the dorsal lateral margin of the spinal canal at the L2-3 level. There is severe right-sided neural foraminal narrowing and mild left-sided neural foraminal narrowing at L2-3. At L3-4, there is degenerative disc narrowing, diffuse disc bulging, a degenerative grade 1 6 mm spondylolisthesis. There is severe right and moderate left-sided neural foraminal narrowing. Facet hypertrophy is noted particularly on the right. These findings are unchanged. At L4-5, there is bony ankylosis of the the disc. A 4 mm grade 1 degenerative spondylolisthesis is present unchanged. Some posterior osteophytic ridging is seen indenting the thecal sac. There is bilateral neural foraminal narrowing moderate in degree. At L5-S1, there is minimal diffuse disc bulging. There is left-sided neural foraminal narrowing at L5-S1 due to facet hypertrophy. IMPRESSION: Severe screw coli oasis, levoconvex. Degenerative spondylosis changes. Multilevel neural foraminal narrowing. Findings essentially unchanged from January 30, 2020. <Electronically signed by Jerod Baird > 12/18/20 0815
== END ==
LOC: M PLAIMG 13:47
PROVIDERS: ATTEND Physical Medicine & Rehabilitation
DX: M48.07 Spinal stenosis, lumbosacral region (principal)

== ENCOUNTER → 2020-12-30 | Outpatient (CLI) | payer MEDICARE, BC, OTHER ==
[~2020-12-30] MED LIST changes: -PROHANCE 279.3MG/ML 15ML VIAL ONE
[2020-12-30 14:03] LABS: C REACTIVE PROTEIN QUANTITATIV < 0.30 MG/DL (0.00-0.30); RHEUMATOID FACTOR QUANT < 10.0 IU/ML (<15.0); URIC ACID 7.6 MG/DL (2.6-6.0)
[2020-12-31 17:10] LABS: ANTINUCLEAR ANTIBODIES DIRECT Negative (Negative)
== END ==
LOC: M PLALAB 11:45
PROVIDERS: ATTEND Physician Assistant
DX: G56.03 Carpal tunnel syndrome, bilateral upper limbs (principal)

== ENCOUNTER → 2021-02-27 | Outpatient (CLI) | payer MEDICARE, BC, OTHER ==
--- NOTE | 2021-02-27 09:51 | REP ---
INDICATION: YEARLY COMPARISON: 03/05/2017 TECHNIQUE: PA and lateral. FINDINGS: The mediastinum and cardiac silhouette are normal. The lung nash are clear and without acute consolidation, effusion, or pneumothorax. The skeletal structures are intact and normal. IMPRESSION: No acute cardiopulmonary process. <Electronically signed by Fan Hightower > 02/27/21 0965
[2021-02-27 11:24] LABS: HEMATOCRIT 37.9 % (36.0-47.0); HEMOGLOBIN 12.8 g/dl (12.0-15.5); MEAN CORPUSCULAR HEMOGLOBIN 33.2 pg (27.0-33.0); MEAN CORPUSCULAR HGB CONC 33.8 g/dl (32.0-36.5); MEAN CORPUSCULAR VOLUME 98.4 fl (80.0-96.0); PLATELET COUNT, AUTOMATED 328 10^3/uL (150-450); RED BLOOD COUNT 3.85 10^6/uL (4.00-5.40); WHITE BLOOD COUNT 6.3 10^3/uL (4.0-10.0)
[2021-02-27 11:31] LABS: PROTHROMBIN TIME 13.6 SECONDS (12.7-14.5)
[2021-02-27 12:09] LABS: ALBUMIN 3.8 GM/DL (3.2-5.2); BILIRUBIN,TOTAL 0.4 MG/DL (0.2-1.0); CHOLESTEROL RISK RATIO 3.984 (<5); CREATININE FOR GFR 1.2 MG/DL (0.55-1.30); GLOMERULAR FILTRATION RATE 45.3 (>32); POTASSIUM SERUM 4.5 MEQ/L (3.5-5.1); THYROID STIMULATING HORMONE 9.06 uIU/ML (0.358-3.740); TOTAL 25(OH) VITAMIN D 40.3 NG/ML (30.0-100.0); TOTAL PROTEIN 7.1 GM/DL (6.4-8.2)
== END ==
LOC: M PLALAB 09:00
PROVIDERS: ATTEND Family Medicine
DX: Z01.818 Encounter for other preprocedural examination (principal); J44.9 Chronic obstructive pulmonary disease, unspecified; I10 Essential (primary) hypertension; Z79.01 Long term (current) use of anticoagulants

== ENCOUNTER → 2021-05-13 | Outpatient (CLI) | payer MEDICARE, BC, OTHER ==
[2021-05-13 14:08] LABS: HEMATOCRIT 38.5 % (36.0-47.0); HEMOGLOBIN 12.8 g/dl (12.0-15.5); MEAN CORPUSCULAR HEMOGLOBIN 33.3 pg (27.0-33.0); MEAN CORPUSCULAR HGB CONC 33.2 g/dl (32.0-36.5); MEAN CORPUSCULAR VOLUME 100.3 fl (80.0-96.0); PLATELET COUNT, AUTOMATED 321 10^3/uL (150-450); RED BLOOD COUNT 3.84 10^6/uL (4.00-5.40); WHITE BLOOD COUNT 6.7 10^3/uL (4.0-10.0)
[2021-05-13 14:16] LABS: INR 0.99; PROTHROMBIN TIME 13.5 SECONDS (12.7-14.5)
[2021-05-13 14:54] LABS: ALBUMIN 3.8 GM/DL (3.2-5.2); BILIRUBIN,TOTAL 0.4 MG/DL (0.2-1.0); CHOLESTEROL RISK RATIO 4.372 (<5); CREATININE FOR GFR 1.26 MG/DL (0.55-1.30); GLOMERULAR FILTRATION RATE 42.9 (>32); POTASSIUM SERUM 4.4 MEQ/L (3.5-5.1); THYROID STIMULATING HORMONE 2.33 uIU/ML (0.358-3.740)
[2021-05-13 15:17] LABS: HEMOGLOBIN A1c 5.9 %
== END ==
LOC: M PLALAB 10:11
PROVIDERS: ATTEND Family Medicine
DX: I10 Essential (primary) hypertension (principal); Z79.01 Long term (current) use of anticoagulants

== ENCOUNTER → 2021-05-25 | Outpatient (CLI) | payer MEDICARE, BC, OTHER | LOC: M EKG 11:15 | PROVIDERS: ATTEND Family Medicine | DX: Z01.818 Encounter for other preprocedural examination (principal) ==

== ENCOUNTER → 2021-09-08 | Outpatient (CLI) | payer MEDICARE, BC, OTHER ==
[~2021-09-08] MED LIST changes: -TRIA37.53; +TRIA37.577
== END ==
LOC: M PLALAB 13:07
PROVIDERS: ATTEND Physical Medicine & Rehabilitation
DX: M48.061 Spinal stenosis, lumbar region without neurogenic claudication (principal)

== ENCOUNTER → 2022-07-27 | Outpatient (CLI) | payer OTHER | LOC: M PLALAB 13:50 | PROVIDERS: ATTEND Physical Medicine & Rehabilitation | DX: M47.897 Other spondylosis, lumbosacral region (principal) ==

== ENCOUNTER → 2023-07-13 | Outpatient (CLI) | payer MEDICARE, BC, OTHER ==
[~2023-07-13] MED LIST changes: -ROPI1TAB3 PO; +ROPI1TAB73 PO
[2023-07-13 15:00] LABS: TOTAL 25(OH) VITAMIN D 29.9 NG/ML (20.0-100.0)
== END ==
LOC: M LAB 13:59
PROVIDERS: ATTEND Ophthalmology
DX: H35.3131 Nonexudative age-related macular degeneration, bilateral, early dry stage (principal)

== ENCOUNTER → 2023-07-15 | Outpatient (REF) | payer MEDICARE, OTHER ==
[2023-07-19 16:14] LABS: VITAMIN E(ALPHA TOCOPHEROL) 12.3 mg/L (9.0-29.0); VITAMIN E(GAMMA TOCOPHEROL) 1.7 mg/L (0.5-4.9)
== END ==
LOC: M LAB REF 11:29
PROVIDERS: ATTEND Ophthalmology
DX: H35.3131 Nonexudative age-related macular degeneration, bilateral, early dry stage (principal)

== ENCOUNTER → 2023-07-25 | Outpatient (CLI) | payer MEDICARE, OTHER ==
[2023-07-25 13:37] LABS: HEMATOCRIT 36.8 % (36.0-47.0); MEAN CORPUSCULAR HEMOGLOBIN 32.2 pg (27.0-33.0); MEAN CORPUSCULAR HGB CONC 32.6 g/dl (32.0-36.5); MEAN CORPUSCULAR VOLUME 98.7 fl (80.0-96.0); PLATELET COUNT, AUTOMATED 333 10^3/uL (150-450); RED BLOOD COUNT 3.73 10^6/uL (4.00-5.40); WHITE BLOOD COUNT 8.1 10^3/uL (4.0-10.0)
[2023-07-25 13:57] LABS: ALBUMIN 3.2 G/DL (3.2-5.2); BILIRUBIN,TOTAL 0.6 MG/DL (0.3-1.2); CALCIUM LEVEL 9.5 MG/DL (8.3-10.6); CHOLESTEROL RISK RATIO 4.13 (<5); CREATININE FOR GFR 1.12 MG/DL (0.55-1.30); GLOMERULAR FILTRATION RATE 48.9 (>32); HDL CHOLESTEROL 48.9 MG/DL (>40); LDL CHOLESTEROL 127.9 MG/DL (<100); NON-HDL-C 153.1 MG/DL; POTASSIUM SERUM 4.4 MMOL/L (3.5-5.1); TOTAL PROTEIN 6.4 G/DL (5.7-8.2)
== END ==
LOC: M PLALAB 11:44
PROVIDERS: ATTEND Physician Assistant
DX: E78.2 Mixed hyperlipidemia (principal)

== ENCOUNTER → 2023-11-18 | Outpatient (CLI) | payer MEDICARE, OTHER ==
[2023-11-18 15:42] LABS: BASO # 0.1 10^3/uL (0.0-0.2); BASO % 0.8 % (0.0-1.0); EOS # 0.2 10^3/uL (0.0-0.5); EOS % 1.7 % (0.0-3.0); HEMATOCRIT 39.5 % (36.0-47.0); HEMOGLOBIN 13.1 g/dl (12.0-15.5); LYMPH # 1.4 10^3/uL (1.5-5.0); LYMPH % 13.1 % (24.0-44.0); MEAN CORPUSCULAR HEMOGLOBIN 32.3 pg (27.0-33.0); MEAN CORPUSCULAR HGB CONC 33.2 g/dl (32.0-36.5); MEAN CORPUSCULAR VOLUME 97.5 fl (80.0-96.0); MONO # 1.3 10^3/uL (0.0-0.8); MONO % 12.3 % (2.0-8.0); NEUTROPHILS # 7.7 10^3/uL (1.5-8.5); NEUTROPHILS % 70.8 % (36.0-66.0); PLATELET COUNT, AUTOMATED 540 10^3/uL (150-450); RED BLOOD COUNT 4.05 10^6/uL (4.00-5.40); WHITE BLOOD COUNT 10.8 10^3/uL (4.0-10.0)
[2023-11-18 16:13] LABS: CALCIUM LEVEL 9.8 MG/DL (8.3-10.6); CREATININE FOR GFR 1.1 MG/DL (0.55-1.30); GLOMERULAR FILTRATION RATE 49.8 (>32)
[2023-11-18 16:15] LABS: THYROID STIMULATING HORMONE 0.037 uIU/ML (0.55-4.78)
== END ==
LOC: M PLALAB 11:50
PROVIDERS: ATTEND Internal Medicine Cardiovascular Disease
DX: I48.91 Unspecified atrial fibrillation (principal)

== ENCOUNTER → 2024-01-20 | Outpatient (CLI) | payer MEDICARE, BC | LOC: M PLALAB 11:35 | PROVIDERS: ATTEND Internal Medicine Cardiovascular Disease | DX: I48.91 Unspecified atrial fibrillation (principal); E03.8 Other specified hypothyroidism ==

== ENCOUNTER → 2024-02-21 | Outpatient (CLI) | payer OTHER, MEDICARE, BC ==
[~2024-02-21] MED LIST changes: +PROHANCE 279.3MG/ML 5ML VIAL ONE
== END ==
LOC: M PLAIMG 10:49
PROVIDERS: ATTEND Physical Medicine & Rehabilitation
DX: M48.07 Spinal stenosis, lumbosacral region (principal); M47.897 Other spondylosis, lumbosacral region

== ENCOUNTER → 2024-03-26 | Outpatient (CLI) | payer MEDICARE, OTHER ==
[~2024-03-26] MED LIST changes: -PROHANCE 279.3MG/ML 5ML VIAL ONE
== END ==
LOC: M PLALAB 12:01
PROVIDERS: ATTEND Internal Medicine Cardiovascular Disease
DX: E03.9 Hypothyroidism, unspecified (principal)